=== PATIENT | female | born 2000 | race Caucasian/White ===

== ENCOUNTER 2023-10-25 14:43 | Inpatient (IN) | payer OTHER ==
[2023-10-25] MEDS ORDERED: Nalbuphine 10 MG/ML Syringe IVPUSH PRN (16:08)
[2023-10-25] MEDS ORDERED: Lidocaine 1% 50 ML MDV INJECT PRN (16:08)
[2023-10-25 17:09] LABS: BASOPHILS ABSOLUTE AUTO 0.1 K/mm3 (0.0-0.2); BASOPHILS PERCENT AUTO 0.5 % (0.0-1.0); EOSINOPHILS ABSOLUTE AUTO 0.8 K/mm3 (0.0-0.4); EOSINOPHILS PERCENT AUTO 4.9 % (0.0-6.0); HEMATOCRIT 32.7 % (37.0-47.0); HEMOGLOBIN 11.1 gm/dl (12.0-16.0); IMMATURE GRAN ABSOLUTE AUTO 0.17 K/mm3 (0.00-0.05); IMMATURE GRAN PERCENT AUTO 1.1 % (0.0-0.4); LYMPHOCYTES ABSOLUTE AUTO 1.8 K/mm3 (1.0-4.8); LYMPHOCYTES PERCENT AUTO 11.7 % (24.0-44.0); MEAN CORPUSCULAR HEMOGLOBIN 30.1 pg (28.0-32.0); MEAN CORPUSCULAR HGB CONC 33.9 g/dl (32.0-36.0); MEAN CORPUSCULAR VOLUME 88.6 fl (83.0-99.0); MEAN PLATELET VOLUME 11.3 fl (9.4-12.3); MONOCYTES ABSOLUTE AUTO 1.3 K/mm3 (0.0-0.8); MONOCYTES PERCENT AUTO 8.7 % (0.0-8.0); NEUTROPHILS ABSOLUTE AUTO 11.3 K/mm3 (1.8-7.7); NEUTROPHILS PERCENT AUTO 73.1 % (41.0-71.0); PLATELET COUNT,PLT 202 K/mm3 (150-400); RED BLOOD CELL COUNT 3.69 M/mm3 (4.10-5.30); WHITE BLOOD CELL COUNT,WBC 15.42 K/mm3 (3.9-11.3)
[2023-10-25] MEDS: Lactated Ringers 1,000 ML IV SCH (17:37)
[2023-10-25] MEDS: Oxytocin/Lactated Ringers 30 UNIT/500 ML BAG IV SCH (17:38)
[2023-10-25] MEDS ORDERED: diphenhydrAMINE 50 MG/ML SDV IVPUSH PRN (19:28)
[2023-10-25] MEDS: fentaNYL 100 MCG/2 ML SDV EPIDUR PRN (19:39)
[2023-10-25] MEDS: ePHEDrine 50 MG/ML SDV IVPUSH PRN (19:58)
[2023-10-25] MEDS ORDERED: ePHEDrine 50 MG/ML SDV ONE (22:00)
[2023-10-25] MEDS ORDERED: Bupivacaine 0.25% 10 ML SDV ONE (22:00)
[2023-10-26] MEDS: Bupivacaine/fentaNYL/NS 100 ML Bag EPIDUR PRN (01:37)
[2023-10-26] MEDS: Ondansetron 4 MG/2 ML SDV IVPUSH PRN (08:10)
[2023-10-26] MEDS ORDERED: Sodium Chloride 0.9% 10 ML Syringe FLUSH PRN (10:16)
[2023-10-26] MEDS ORDERED: Lidocaine 2% with EPINEPHrine 1:200,000 20 ML SDV ONE (10:17)
[2023-10-26] MEDS: Metoclopramide 10 MG/2 ML SDV IVPUSH ONE (10:28)
[2023-10-26] MEDS: Citric Acid/Sodium Citrate Solution 30 ML Cup PO ONE (10:28)
[2023-10-26] MEDS ORDERED: Lactated Ringers 1,000 ML IV SCH (10:30)
[2023-10-26] MEDS ORDERED: ceFAZolin 2 GM Vial ONE (10:30)
[2023-10-26] MEDS: Azithromycin 500 MG in Sodium Chloride 0.9% 250 ML IV ONE (10:33)
[2023-10-26] MEDS ORDERED: Oxytocin 10 Units/1 ML SDV ONE (11:03)
[2023-10-26] MEDS ORDERED: Tranexamic Acid 1,000 MG/10 ML Vial ONE (11:06)
[2023-10-26] MEDS ORDERED: Lactated Ringers 1,000 ML ONE (11:10)
[2023-10-26] MEDS ORDERED: Ondansetron 4 MG/2 ML SDV ONE (11:15)
[2023-10-26] MEDS ORDERED: Ketorolac 30 MG/ML SDV ONE (11:15)
[2023-10-26] MEDS ORDERED: Morphine PF 10 MG/10 ML SDV ONE (11:17)
[2023-10-26] MEDS ORDERED: diphenhydrAMINE 50 MG/ML SDV IVPUSH PRN ×2 (12:06→12:07)
[2023-10-26] MEDS ORDERED: Ondansetron 4 MG/2 ML SDV IVPUSH PRN (12:06)
[2023-10-26] MEDS ORDERED: ePHEDrine 50 MG/ML SDV IVPUSH PRN (12:07)
[2023-10-26] MEDS ORDERED: Naloxone 0.4 MG/ML SDV IVPUSH PRN (12:07)
[2023-10-26 12:57] LABS: BASOPHILS PERCENT AUTO 0.2 % (0.0-1.0); EOSINOPHILS PERCENT AUTO 0.1 % (0.0-6.0); HEMATOCRIT 29.2 % (37.0-47.0); HEMOGLOBIN 9.9 gm/dl (12.0-16.0); IMMATURE GRAN PERCENT AUTO 0.6 % (0.0-0.4); LYMPHOCYTES ABSOLUTE AUTO 0.4 K/mm3 (1.0-4.8); LYMPHOCYTES PERCENT AUTO 2.2 % (24.0-44.0); MEAN CORPUSCULAR HEMOGLOBIN 29.8 pg (28.0-32.0); MEAN CORPUSCULAR HGB CONC 33.9 g/dl (32.0-36.0); MEAN PLATELET VOLUME 11.1 fl (9.4-12.3); MONOCYTES ABSOLUTE AUTO 1.6 K/mm3 (0.0-0.8); MONOCYTES PERCENT AUTO 9.2 % (0.0-8.0); NEUTROPHILS ABSOLUTE AUTO 15.5 K/mm3 (1.8-7.7); NEUTROPHILS PERCENT AUTO 87.7 % (41.0-71.0); PLATELET COUNT,PLT 169 K/mm3 (150-400); RED BLOOD CELL COUNT 3.32 M/mm3 (4.10-5.30); WHITE BLOOD CELL COUNT,WBC 17.65 K/mm3 (3.9-11.3)
[2023-10-26 13:18] LABS: SLIDE REVIEW ABNORMAL SMEAR
[2023-10-26 13:27] LABS: FIBRINOGEN 443 mg/dL (187-446)
[2023-10-26 13:28] LABS: PROTHROMBIN TIME 9.8 SECONDS (9.7-12.0)
[2023-10-26 13:30] LABS: PTT,PARTIAL THROMBOPLSTIN TIME 28.8 SECONDS (21.7-31.4)
[2023-10-26 13:35] LABS: INR < 0.93
[2023-10-26] MEDS: Dextrose 5%-Lactated Ringers 1,000 ML IV SCH (15:30)
[2023-10-26] MEDS: Ketorolac 30 MG/ML SDV IVPUSH SCH (17:23)
[2023-10-26] MEDS: ceFAZolin 2 GM in Sodium Chloride 0.9% 50 ML IV ONE (19:29)
[2023-10-26] MEDS: Acetaminophen/oxyCODONE 325-5 MG Tab PO PRN (20:05)
[2023-10-27] MEDS: Acetaminophen/oxyCODONE 325-5 MG Tab PO PRN (01:06)
[2023-10-27] MEDS: Sodium Chloride 0.9% 10 ML Syringe FLUSH SCH ×2 (01:17→04:43)
[2023-10-27] MEDS: Ketorolac 30 MG/ML SDV IVPUSH SCH (01:39)
[2023-10-27] MEDS: Docusate Sodium 100 MG Cap PO PRN (05:28)
[2023-10-27 06:00] LABS: BASOPHILS ABSOLUTE AUTO 0.1 K/mm3 (0.0-0.2); BASOPHILS PERCENT AUTO 0.3 % (0.0-1.0); EOSINOPHILS ABSOLUTE AUTO 0.3 K/mm3 (0.0-0.4); EOSINOPHILS PERCENT AUTO 1.5 % (0.0-6.0); HEMATOCRIT 25.8 % (37.0-47.0); HEMOGLOBIN 8.6 gm/dl (12.0-16.0); IMMATURE GRAN ABSOLUTE AUTO 0.16 K/mm3 (0.00-0.05); IMMATURE GRAN PERCENT AUTO 0.8 % (0.0-0.4); LYMPHOCYTES PERCENT AUTO 5.1 % (24.0-44.0); MEAN CORPUSCULAR HEMOGLOBIN 29.8 pg (28.0-32.0); MEAN CORPUSCULAR HGB CONC 33.3 g/dl (32.0-36.0); MEAN CORPUSCULAR VOLUME 89.3 fl (83.0-99.0); MEAN PLATELET VOLUME 11.1 fl (9.4-12.3); MONOCYTES ABSOLUTE AUTO 1.5 K/mm3 (0.0-0.8); MONOCYTES PERCENT AUTO 7.5 % (0.0-8.0); NEUTROPHILS ABSOLUTE AUTO 17.3 K/mm3 (1.8-7.7); NEUTROPHILS PERCENT AUTO 84.8 % (41.0-71.0); PLATELET COUNT,PLT 162 K/mm3 (150-400); RED BLOOD CELL COUNT 2.89 M/mm3 (4.10-5.30); WHITE BLOOD CELL COUNT,WBC 20.36 K/mm3 (3.9-11.3)
[2023-10-27 06:22] LABS: SLIDE REVIEW ABNORMAL SMEAR
[2023-10-27] MEDS: Ibuprofen 600 MG Tab PO SCH ×2 (07:44→11:28)
[2023-10-28] MEDS: Ibuprofen 600 MG Tab PO SCH (07:36)
== END 2023-10-28 13:15 | disposition home or self-care (01) | DRG 788 ==
LOC: JD.OBCHECK 14:43 → JD.OB 14:46 → JD.OBCHECK 16:13 → JD.OB 16:14 → OBSVTOIN 10-26 11:02 → JD.OB 10-26 11:03
PROVIDERS: ADMIT Obstetrics & Gynecology; ATTEND Obstetrics & Gynecology
PROC: 10D00Z1 Extraction of Products of Conception, Low, Open Approach (ICD-10-PCS; principal; 2023-10-26 11:15)
DX: O42.02 Full-term premature rupture of membranes, onset of labor within 24 hours of rupture (principal); Z37.0 Single live birth; O32.4XX0 Maternal care for high head at term, not applicable or unspecified; O90.81 Anemia of the puerperium; Z3A.39 39 weeks gestation of pregnancy
CPT/HCPCS: 36415; 51702; 59025; 85025; 85384; 85610; 85730; 86592; 86850; 86900; 86901; A9270-GY; J0456; J0665; J0690; J1885; J2274; J2405; J2590; J2765; J3010; J3490; J7050; J7120; J7121; J7999

== ENCOUNTER 2025-03-12 08:01 | Inpatient (IN) | payer OTHER ==
[2025-03-12] MEDS ORDERED: Sodium Chloride 0.9% 10 ML Syringe FLUSH PRN (08:42)
[2025-03-12] MEDS ORDERED: Ondansetron 4 MG/2 ML SDV IVPUSH PRN (08:42)
[2025-03-12] MEDS ORDERED: Nalbuphine 10 MG/1 ML Vial IVPUSH PRN (08:42)
[2025-03-12] MEDS ORDERED: Oxytocin/0.9 % Sodium Chloride 30 UNIT/500 ML BAG IV SCH (08:45)
[2025-03-12 08:59] LABS: BASOPHILS ABSOLUTE AUTO 0.1 K/mm3 (0.0-0.2); BASOPHILS PERCENT AUTO 0.4 % (0.0-1.0); EOSINOPHILS ABSOLUTE AUTO 0.4 K/mm3 (0.0-0.4); EOSINOPHILS PERCENT AUTO 2.7 % (0.0-6.0); IMMATURE GRAN ABSOLUTE AUTO 0.17 K/mm3 (0.00-0.05); IMMATURE GRAN PERCENT AUTO 1.2 % (0.0-0.4); LYMPHOCYTES ABSOLUTE AUTO 1.7 K/mm3 (1.0-4.8); LYMPHOCYTES PERCENT AUTO 12.1 % (24.0-44.0); MEAN PLATELET VOLUME 10.9 fl (9.4-12.3); MONOCYTES ABSOLUTE AUTO 1.0 K/mm3 (0.0-0.8); MONOCYTES PERCENT AUTO 7.0 % (0.0-8.0); NEUTROPHILS ABSOLUTE AUTO 10.7 K/mm3 (1.8-7.7); NEUTROPHILS PERCENT AUTO 76.6 % (41.0-71.0); NRBC ABSOLUTE 0.00 (0.00-0.02); NRBC PERCENT 0.0 % (0.0-0.2); PLATELET COUNT,PLT 229 K/mm3 (150-400); RED BLOOD CELL COUNT 4.08 M/mm3 (4.10-5.30); WHITE BLOOD CELL COUNT,WBC 13.92 K/mm3 (3.9-11.3)
[2025-03-12] MEDS: Oxytocin/0.9 % Sodium Chloride 30 UNIT/500 ML BAG IV SCH (10:05)
[2025-03-12] MEDS: Lactated Ringers 1,000 ML IV SCH (10:05)
[2025-03-12] MEDS ORDERED: diphenhydrAMINE 50 MG/ML SDV IVPUSH PRN (11:26)
[2025-03-12] MEDS ORDERED: ePHEDrine 50 MG/ML SDV IVPUSH PRN (11:26)
[2025-03-12] MEDS: Bupivacaine/fentaNYL/NS 100 ML Bag EPIDUR PRN (11:36)
[2025-03-12] MEDS: Sodium Chloride 0.9% 10 ML Syringe FLUSH SCH (13:03)
[2025-03-12] MEDS: Witch Hazel Medicated Pads 40/Jar TOP PRN (17:21)
[2025-03-12] MEDS: Benzocaine/Menthol 20%-0.5% Spray 78 GM Cannister TOP PRN (17:21)
== END 2025-03-13 17:25 | disposition home or self-care (01) | DRG 807 ==
LOC: JD.OB 08:01 → JD.OBCHECK 08:01 → JD.OB 08:42 → OBSVTOIN 15:25 → JD.OB 15:26
PROVIDERS: ADMIT Obstetrics & Gynecology; ATTEND Obstetrics & Gynecology
PROC: 10E0XZZ Delivery of Products of Conception, External Approach (ICD-10-PCS; principal; 2025-03-12)
PROC: 0KQM0ZZ Repair Perineum Muscle, Open Approach (ICD-10-PCS; 2025-03-12)
PROC: 10907ZC Drainage of Amniotic Fluid, Therapeutic from Products of Conception, Via Natural or Artificial Opening (ICD-10-PCS; 2025-03-12)
PROC: 4A0HXCZ Measurement of Products of Conception, Cardiac Rate, External Approach (ICD-10-PCS; 2025-03-12)
PROC: 3E0S3BZ Introduction of Anesthetic Agent into Epidural Space, Percutaneous Approach (ICD-10-PCS; 2025-03-12)
DX: O80 Encounter for full-term uncomplicated delivery (principal); Z37.0 Single live birth; O34.219 Maternal care for unspecified type scar from previous cesarean delivery; Z3A.39 39 weeks gestation of pregnancy
CPT/HCPCS: 01967; 36415; 51701; 51702; 59025; 59409; 84112; 85025; 86592; 86850; 86900; 86901; A9270-GY; J3490; J7120; J7999